=== PATIENT | male | born 1960 | race Caucasian/White ===

== ENCOUNTER 2024-06-02 10:26 | Emergency (ER) | payer MEDICAID, SELFPAY ==
--- NOTE | ~2024-06-02 | XR_ITS ---
EXAMINATION: XR CHEST CLINICAL INFORMATION: chest pain COMPARISON: None available. TECHNIQUE: Frontal view of the chest was obtained. FINDINGS: No significant abnormality is noted involving the heart, lungs, mediastinum, bony thorax or soft tissues. XR/XR chest 1V IMPRESSION: Unremarkable examination. Electronically signed by: Bubba Gonzalez MD 06/02/2024 11:29 AM [facility]
--- NOTE | ~2024-06-02 | CT_ITS ---
EXAMINATION: CT CERVICAL SPINE WITHOUT CONTRAST CLINICAL INFORMATION: Left-sided radicular pain COMPARISON: None available. TECHNIQUE: Contiguous axial images through the cervical spine using 0.6 and 2.0 mm collimation with soft tissue and lung algorithm. Sagittal and coronal reformatted images acquired. This CT examination was performed using dose optimization techniques as appropriate, variously including the following: *Automated exposure control *Adjustment of mA and/or kV according to patient size (this includes techniques or standardized protocols for targeted exams where dose is matched to indication/reason for exam; i.e. extremities or head) *Use of iterative reconstruction technique DLP: 380 mGy-cm FINDINGS: Craniocervical junction is intact. C1 is intact. C2 is intact. C3 is intact. C4 is intact. C5 is intact. C6 is intact. C7 is intact. There is normal alignment. Marginal osteophyte formation C3-4 and C5-6. No hematoma, prevertebral compartment. Tympanic cavities and mastoid cells are aerated. High riding right internal jugular bulb extending into the posterior inferior right hypotympanum. CT/CT cervical spine wo IV con IMPRESSION: Spondylosis, C3-4 and C5-6 without acute fracture or listhesis. Fleischner guidelines were followed. Electronically signed by: Kulwant Giron MD 06/02/2024 12:19 PM [facility]
[2024-06-02 10:34] VITALS: BP 137/80; PULSE 88; O2SAT 98
--- NOTE | 2024-06-02 10:35 | ECG_ITS ---
Test Reason : CHEST PAIN Blood Pressure : / mmHG Vent. Rate : 077 BPM Atrial Rate : 077 BPM P-R Int : 124 ms QRS Dur : 082 ms QT Int : 350 ms P-R-T Axes : 062 -14 036 degrees QTc Int : 396 ms Normal sinus rhythm Normal ECG No previous ECGs available Referred By: Nila Medrano Electronically Signed By:ADIS CUADRA MD
--- NOTE | 2024-06-02 10:38 | ED.CHESTPAIN ---
HPI - Chest Pain General Chief Complaint: Neck Pain/Injury Stated Complaint: CP Time Seen by Provider: 06/02/24 10:35 Source: patient, EMS and japanese interpreter Mode of arrival: EMS Limitations: no limitations History of Present Illness ED Provider: MORALES BALL narrative: 63 yo male with no PMH here with c/o L sided neck pain and on off x 1 week radiates to L hand states felt tingling in that hand as well. Denies fevers, trauma. Notes he is R hand dominant. given aspirin and nitro by EMS no relief with nitro. He notes it hurts to turn his neck. He is also worried because when he gets the pain he feels depressed. No rash reported MD complaint: other (neck pain) Onset (ago): week(s) (1) Timing of current episode: episodic Prior episodes: No Onset: other (turning neck) Pain location: other (left posterior lateral neck) Pain radiation: left arm Severity: moderate Quality: sharp Relieving factors: rest Exacerbating factors: movement Associated symptoms: other (tingling in L hand at times) Related Data Previous Rx's ?Medication ?Instructions ?Recorded cyclobenzaprine 10 mg tablet 10 mg PO TID PRN muscle spasm #20 06/02/24 tabs lidocaine 5 % topical patch 1 patch topical DAILY #30 ea 06/02/24 prednisone 20 mg tablet 40 mg (2 x 20 mg) PO DAILY 5 days 06/02/24 #10 tabs Allergies Allergy/AdvReac Type Severity Reaction Status Date / Time No Known Allergies Allergy Verified 06/02/24 10:48 [No Known Allergies*] Review of Systems Review of Systems: Constitutional : No Fever, No Chills, No Fatigue ENT/Mouth : No sore throat, No Rhinorrhea Eyes: No Eye Pain, No Swelling, No Redness Cardiovascular : No Chest Pain, No SOB, No Dyspnea on Exertion Respiratory : No Cough, No Sputum Gastrointestinal : No Nausea, No Vomiting, No Diarrhea, No abdominal Pain Genitourinary : No Dysuria, No Urinary Frequency, No Hematuria, Musculoskeletal : No joint pain, No Myalgias, No Joint Swelling, pos neck pain Skin : No Skin Lesions, No rash Neuro : No Weakness, No Numbness, No Dizziness, no Headache, pos tingling Psych : No Anxiety/Panic, No Depression All other systems reviewed and are negative [facility] Past Medical History Attestation statement: The following information was validated with the patient. Source: old records reviewed Medical History No pertinent past medical history Social History Social History (Updated 06/02/24 @ 11:00 by Nila Medrano DO) Patient Tobacco Use Status: Never used Tobacco Smoked in Last 30 Days: No Use of substances other than those prescribed or required for medical reasons: No Advance Directives: No Advance Directives Information Provided: Yes Physical Exam Vital Signs: Vital Signs: Last Vital Signs Temp 98.4 F 06/02/24 12:13 Pulse 70 06/02/24 12:13 Resp 16 06/02/24 12:13 BP 144/86 H 06/02/24 12:13 Pulse Ox 99 06/02/24 12:13 O2 Del Method Room Air 06/02/24 12:13 BMI result Body Mass Index 29.3 Appearance: Alert. Oriented X3. No acute distress. Eyes: Pupils equal, round and reactive to light. ENT: Pharynx normal. Neck: + ttp along L lateral neck, + spurling maneuver CVS: Normal heart rate and rhythm. Pulses normal. Respiratory: No respiratory distress. Breath sounds normal. Abdomen: Soft and nontender. Skin: Skin warm and dry. Normal skin color. Normal skin turgor. Extremities: No lower extremity edema. L hand SILT intact throughout 2+ radial pulse, 5/5 strength Neuro: Oriented X 3. No motor deficit. No sensory deficit. Medications Administered Discontinued Medications Generic Name Dose Route Start Last Admin Trade Name Freq PRN Reason Stop Dose Admin Cyclobenzaprine HCl 10 mg 06/02/24 10:50 06/02/24 10:58 Cyclobenzaprine Hcl 10 Mg Tablet PO 06/02/24 10:51 10 mg ONCE ONE Administration Ketorolac Tromethamine 15 mg 06/02/24 10:50 06/02/24 10:57 Ketorolac Tromethamine 15 Mg/Ml Vial IVPUSH 06/02/24 10:51 15 mg ONCE ONE Administration Lidocaine 1 patch 06/02/24 10:50 06/02/24 10:58 Lidocaine 4 % Patch Adh..Patch TRANSDERMA 06/02/24 10:51 1 patch ONCE ONE Administration Protocol Medical Decision Making Medical Decision Making MDM Narrative: 63 yo male no sig PMH here with c/o L neck pain and radiating down L hand occasionally has tingling in hand but on exam SILT intact, 2+ radial pulse and 5/5 strength throughout no risk factors for dissection pain is on and off at this time suspect cervical radiculopathy - PO medications, labs, CT scan, no signs of neurovasc compromise of LUE Differential Diagnosis Differential Diagnoses: The differential diagnosis associated with the presentation includes radiculopathy, cervical strain Admission/Observation Consideration of admission/observation: Escalation of care including admission/observation considered feels better stable for DC Lab Data [facility] Lab Attestation statement: I reviewed the patient's lab results. 06/02/24 10:56 06/02/24 10:56 Labs: Lab Results 06/02/24 Range/Units 10:56 WBC 7.9 (4.8-10.8) X10*3/uL RBC 5.01 (4.60-5.80) X10*6/uL Hgb 13.8 L (14.0-18.0) g/dl Hct 41.6 L (42.0-52.0) % MCV 83.0 (80.0-98.0) fL MCH 27.5 (27.0-33.0) pg MCHC 33.2 (31.0-36.0) g/dl RDW 13.1 (11.0-16.0) % Plt Count 210 (160-400) X10*3/uL MPV 10.6 (9.4-12.4) fL Immature Gran % (Auto) 0.5 H (0.0-0.4) % Neut % (Auto) 72.6 (45-73) % Lymph % (Auto) 16.7 L (20-40) % [place] % (Auto) 6.9 (2-11) % Eos % (Auto) 2.5 (0-4) % Baso % (Auto) 0.8 (0-2) % Lymph # (Auto) 1.3 (1.2-4.9) X10*3/uL [place] # (Auto) 0.6 (0.1-1.2) X10*3/uL Eos # (Auto) 0.2 (0.0-0.4) X10*3/uL Baso # (Auto) 0.1 (0.0-0.2) X10*3/uL Abs Immat Gran (auto) 0.04 H (0.00-0.03) X10*3/uL Absolute Neuts (auto) 5.8 (2.0-8.3) x10*3/uL Absolute Nucleated RBC 0.000 (0.0-0.012) X10*3/uL Nucleated RBC % (auto) 0.0 (0.0-0.2) /100WBC PT 11.7 (10.9-12.4) SEC INR 1.0 (0.9-1.1) Sodium 139 (135-145) mmol/L Potassium 3.7 (3.3-5.1) mmol/L Chloride 106 (96-108) mmol/L Carbon Dioxide 24 (22-29) mmol/L Anion Gap 13 (12-20) BUN 18 H (9-16) mg/dL Creatinine 0.87 (0.5-1.4) mg/dL Estim Creat Clear Calc 72.1 Estimated GFR > 60 Random Glucose 109 (60-115) mg/dL Calcium 8.8 (8.4-10.2) mg/dL Magnesium 2.0 (1.6-2.6) mg/dL Total Bilirubin 0.5 (0.0-1.0) mg/dL Direct Bilirubin 0.2 (0.0-0.5) mg/dL AST 23 (5-37) U/L ALT 17 (0-40) U/L Alkaline Phosphatase 128 H (39-117) U/L Troponin I High Sens < 2.7 (<3.5-35.0) ng/L Total Protein 7.0 (6.5-8.0) g/dL Albumin 4.1 (3.5-5.0) g/dL Lipase 21 (8-78) U/L Independent Interpretation I performed an independent interpretation of an: EKG, Plain X-Ray (normal ) and CT Scan (no mass) Interpretation: Rate: 77 Rhythm: NSR [place]: left Normal P waves. Normal SUMA[place]. Normal QRS complex. ST T wave : normal no LEXUS qTC: 396 prior studies: none The study has been interpreted contemporaneously by me. . Radiology Impression Discussion of test interpretation with radiology: I have reviewed the radiologist's reading. Discharge Plan Discharge Clinical Impression: Cervical radiculopathy Patient Disposition: Home, Self-Care Instructions: Cervical Radiculopathy (ED) Additional Instructions: return for any worsening symptoms or concerns please follow up with doctor - [place] [phone] please return for loss of control of hand or worsening numbness CT/CT cervical spine wo IV con IMPRESSION: Spondylosis, C3-4 and C5-6 without acute fracture or listhesis Prescriptions: New cyclobenzaprine 10 mg tablet 10 mg PO TID PRN (Reason: muscle spasm) Qty: 20 0RF prednisone 20 mg tablet 40 mg PO DAILY 5 Days Qty: 10 0RF lidocaine 5 % adhesive patch,medicated 1 patch topical DAILY Qty: 30 0RF Rx Instructions: leave on most painful area for up to 12 hrs Stand Alone Forms: Work/School Release Print Language: Serbian
[2024-06-02 10:39] VITALS: BP 145/75; PULSE 81; RESP 16; TEMP 37.1; O2SAT 100; BMI 29.3
[2024-06-02 10:49] VITALS: PULSE 80; RESP 16
[2024-06-02] MEDS: Ketorolac Tromethamine 15 MG/ML VIAL IVPUSH (10:57)
[2024-06-02] MEDS: Cyclobenzaprine HCl 10 MG TABLET PO (10:58)
[2024-06-02] MEDS: Lidocaine 4 % Patch ADH..PATCH 1 PATCH TRANSDERMA (10:58)
[2024-06-02 11:02] LABS: MANUAL DIFF FLAG NO
[2024-06-02 11:05] LABS: Basophils Absolute Auto 0.1 X10*3/uL (0.0-0.2); Basophils Percent Auto 0.8 % (0-2); Eosinophils Absolute Auto 0.2 X10*3/uL (0.0-0.4); Eosinophils Percent Auto 2.5 % (0-4); Hematocrit 41.6 % (42.0-52.0); Hemoglobin 13.8 g/dl (14.0-18.0); Imm Gran Abs Auto 0.04 X10*3/uL (0.00-0.03); Imm Gran Pct Auto 0.5 % (0.0-0.4); Lymphocytes Absolute Auto 1.3 X10*3/uL (1.2-4.9); Lymphocytes Percent Auto 16.7 % (20-40); Mean Corpuscular HGB Conc 33.2 g/dl (31.0-36.0); Mean Corpuscular Hemoglobin 27.5 pg (27.0-33.0); Mean Platelet Volume 10.6 fL (9.4-12.4); Monocytes Absolute Auto 0.6 X10*3/uL (0.1-1.2); Monocytes Percent Auto 6.9 % (2-11); Neutrophils Absolute Auto 5.8 x10*3/uL (2.0-8.3); Neutrophils Percent Auto 72.6 % (45-73); Platelet Count 210 X10*3/uL (160-400); Red Blood Count 5.01 X10*6/uL (4.60-5.80); Red Cell Distribution Width 13.1 % (11.0-16.0); White Blood Count 7.9 X10*3/uL (4.8-10.8)
[2024-06-02 11:11] LABS: Prothrombin Time 11.7 SEC (10.9-12.4)
[2024-06-02 11:28] LABS: Alanine Aminotransferase 17 U/L (0-40); Albumin Level 4.1 g/dL (3.5-5.0); Anion Gap 13 (12-20); Aspartate Amino Transferase 23 U/L (5-37); Bilirubin Direct 0.2 mg/dL (0.0-0.5); Bilirubin Total 0.5 mg/dL (0.0-1.0); Blood Urea Nitrogen 18 mg/dL (9-16); Calcium 8.8 mg/dL (8.4-10.2); Carbon Dioxide 24 mmol/L (22-29); Chloride 106 mmol/L (96-108); Creatinine Clr Calc Pharmacy 72.1; Estimated Glomerular Filt Rate > 60; Glucose Random 109 mg/dL (60-115); Lipase 21 U/L (8-78); Potassium 3.7 mmol/L (3.3-5.1); Sodium 139 mmol/L (135-145); Troponin-I High Sensitivity < 2.7 ng/L (<3.5-35.0)
[2024-06-02 11:37] LABS: Alkaline Phosphatase 128 U/L (39-117)
[2024-06-02 12:13] VITALS: BP 144/86; PULSE 70; RESP 16; TEMP 36.9; O2SAT 99
[2024-06-02 12:48] VITALS: BP 144/86; PULSE 70; RESP 16; TEMP 36.9; O2SAT 99
== END 2024-06-02 12:48 | disposition home or self-care (01) ==
PROVIDERS: Emergency Provider Emergency Medicine
DX: M54.12 Radiculopathy, cervical region (principal); M54.2 Cervicalgia
CPT/HCPCS: 36415; 71045; 72125; 80048; 80076; 83690; 83735; 84484; 85025; 85610; 93005; 96374; 99284; 99285; J1885

== ENCOUNTER → 2024-06-02 10:35 | Outpatient (BNV) | payer MEDICAID, SELFPAY | PROVIDERS: Emergency Provider Emergency Medicine; Visit Provider Internal Medicine Cardiovascular Disease | DX: R07.9 Chest pain, unspecified (principal) | CPT/HCPCS: 93010 ==

== ENCOUNTER → 2024-06-02 10:50 | Outpatient (BNV) | payer MEDICAID, SELFPAY | PROVIDERS: Emergency Provider Emergency Medicine; Visit Provider Radiology Diagnostic Radiology | DX: M54.12 Radiculopathy, cervical region (principal) | CPT/HCPCS: 72125 ==

== ENCOUNTER 2024-08-14 21:02 | Emergency (ER) | payer MEDICAID, SELFPAY ==
--- NOTE | 2024-08-14 | ECG_ITS ---
Test Reason : CP Blood Pressure : */* mmHG Vent. Rate : 94 BPM Atrial Rate : 94 BPM P-R Int : 118 ms QRS Dur : 80 ms QT Int : 320 ms P-R-T Axes : 57 -22 54 degrees QTcB Int : 400 ms Normal sinus rhythm Normal ECG When compared with ECG of 02-Jun-2024 10:39, No significant change was found Referred By: Generic ED Physician Electronically Signed By: RICHARD CHATMAN
--- NOTE | ~2024-08-14 | XR_ITS ---
CLINICAL HISTORY: cp sob cough 1 view chest x-ray. Comparison: None Findings: No consolidation, pneumothorax, or effusion. Heart size normal. Impression: 1. No acute cardiopulmonary process. No focal pulmonary consolidation. This document has been electronically signed by: Patrice Giang MD on 08/14/2024 22:17:48
[2024-08-14 21:07] VITALS: BP 175/82; PULSE 103; RESP 18; TEMP 37; O2SAT 98; BMI 25.3
[2024-08-14 21:39] LABS: MANUAL DIFF FLAG NO
[2024-08-14 21:42] LABS: Basophils Absolute Auto 0.1 X10*3/uL (0.0-0.2); Basophils Percent Auto 0.7 % (0-2); Eosinophils Absolute Auto 0.4 X10*3/uL (0.0-0.4); Eosinophils Percent Auto 3.4 % (0-4); Hemoglobin 12.8 g/dl (14.0-18.0); Imm Gran Abs Auto 0.05 X10*3/uL (0.00-0.03); Imm Gran Pct Auto 0.4 % (0.0-0.4); Lymphocytes Absolute Auto 1.6 X10*3/uL (1.2-4.9); Lymphocytes Percent Auto 13.5 % (20-40); Mean Corpuscular HGB Conc 33.7 g/dl (31.0-36.0); Mean Corpuscular Hemoglobin 28.1 pg (27.0-33.0); Mean Corpuscular Volume 83.3 fL (80.0-98.0); Mean Platelet Volume 10.6 fL (9.4-12.4); Monocytes Absolute Auto 1.1 X10*3/uL (0.1-1.2); Monocytes Percent Auto 9.2 % (2-11); Neutrophils Absolute Auto 8.4 x10*3/uL (2.0-8.3); Neutrophils Percent Auto 72.8 % (45-73); Platelet Count 199 X10*3/uL (160-400); Red Blood Count 4.56 X10*6/uL (4.60-5.80); Red Cell Distribution Width 12.8 % (11.0-16.0); White Blood Count 11.6 X10*3/uL (4.8-10.8)
[2024-08-14 21:48] LABS: IDNOW Serial# 58CA691E; Strep A Nucleic Acid Negative (Negative)
[2024-08-14 21:56] LABS: Alanine Aminotransferase 18 U/L (0-40); Albumin Level 3.8 g/dL (3.5-5.0); Alkaline Phosphatase 103 U/L (39-117); Anion Gap 12 (12-20); Aspartate Amino Transferase 25 U/L (5-37); Bilirubin Total 0.3 mg/dL (0.0-1.0); Blood Urea Nitrogen 19 mg/dL (9-16); Calcium 8.3 mg/dL (8.4-10.2); Carbon Dioxide 22 mmol/L (22-29); Chloride 111 mmol/L (96-108); Creatinine Clr Calc Pharmacy 65.2; Estimated Glomerular Filt Rate > 60; Glucose Random 123 mg/dL (60-115); Potassium 3.5 mmol/L (3.3-5.1); Sodium 141 mmol/L (135-145); Total Protein 6.8 g/dL (6.5-8.0)
[2024-08-14 22:03] LABS: Troponin-I High Sensitivity 12.2 ng/L (<3.5-35.0)
[2024-08-14 22:13] VITALS: BP 142/76; PULSE 103; RESP 20; TEMP 37.2; O2SAT 98
[2024-08-14 22:14] VITALS: PULSE 103
[2024-08-14 22:19] LABS: Influenza A PCR NEGATIVE (Negative); Influenza B PCR NEGATIVE (Negative); Resp Syncy Virus RNA Qual PCR NEGATIVE (Negative); SARS COV2 PCR INHOUSE NEGATIVE (Negative)
--- NOTE | 2024-08-14 22:47 | ECG_ITS ---
Test Reason : REPEAT Blood Pressure : */* mmHG Vent. Rate : 85 BPM Atrial Rate : 85 BPM P-R Int : 124 ms QRS Dur : 82 ms QT Int : 328 ms P-R-T Axes : 66 -17 52 degrees QTcB Int : 390 ms Normal sinus rhythm Normal ECG When compared with ECG of 14-Aug-2024 21:10, No significant change was found Referred By: Yuri Iyer Electronically Signed By: RICHARD CHATMAN
--- NOTE | 2024-08-14 23:40 | ED_ITS ---
HPI - Chest Pain General Chief Complaint: Chest Pain Stated Complaint: chest pain,sob Time Seen by Provider: 08/14/24 22:36 History of Present Illness ED Provider: Yuri Iyer MD HPI narrative: 63-year-old male nonsmoker no drugs denies medical history reports 3-4 days of intermittent shortness of breath with heavy coughing and associated posttussive chest discomfort. No phlegm or hemoptysis produced denies lower extremity edema. Nonsmoker Related Data Previous Rx's ?Medication ?Instructions ?Recorded cyclobenzaprine 10 mg tablet 10 mg PO TID PRN muscle spasm #20 06/02/24 tabs lidocaine 5 % topical patch 1 patch topical DAILY #30 ea 06/02/24 prednisone 20 mg tablet 40 mg (2 x 20 mg) PO DAILY 5 days 06/02/24 #10 tabs Allergies Allergy/AdvReac Type Severity Reaction Status Date / Time No Known Allergies Allergy Verified 08/14/24 21:14 [No Known Allergies*] COUNTS INCLUDE 234 BEDS AT THE [facility] Past Medical History Medical History No pertinent past medical history Social History Social History (Updated 06/02/24 @ 11:00 by Nila Medrano DO) Patient Tobacco Use Status: Never used Tobacco Smoked in Last 30 Days: No Use of substances other than those prescribed or required for medical reasons: No Advance Directives: No Advance Directives Information Provided: Yes Do you have a plan to hurt others: No Plan Physical Exam 2 Vital Signs: Vital Signs: Last Vital Signs Temp 99 F 08/15/24 01:02 Pulse 115 H 08/15/24 01:02 Resp 25 H 08/15/24 01:02 BP 115/71 08/15/24 01:02 Pulse Ox 99 08/15/24 01:02 O2 Del Method Room Air 08/15/24 01:02 BMI result Body Mass Index 25.3 Const: Other: EXAM: Gen: Alert, awake, well appearing, well hydrated. Head: Atraumatic Eyes: Anicteric, Normal conjunctiva. ENT: Moist mucosa, no pallor. Neck: Supple. Respiratory: Breathing comfortably, No distress.Clear to auscultation bilaterally, symmetric chest expansion, No wheeze, rales, ronchi. Cardiovascular: Regular rate and rhythm. No murmurs or rub. Well perfused periphery, warm extremities. No edema. Abdominal: Soft, no objective distension. No palpable masses or obvious organomegaly. No focal tenderness, no guarding, no rebound tenderness or other peritoneal findings. : No flank tenderness. Neuro: Alert. Gross movement of all extremities intact. Vital signs: See flowsheet Medications Administered Discontinued Medications Generic Name Dose Route Start Last Admin Trade Name Freq PRN Reason Stop Dose Admin Albuterol/Ipratropium 3 ml 08/14/24 23:39 08/14/24 23:53 Albuterol/Iprat 2.5/0.5mg 3 Ml Ampul.Neb INHALE 08/14/24 23:40 3 ml ONCE ONE Administration Guaifenesin/Dextromethorphan 1 tab 08/14/24 23:39 08/15/24 00:12 Guaifenesin Dm 600/30 1 Tab Tab.Er.12h PO 08/14/24 23:40 1 tab ONCE ONE Administration Ibuprofen 400 mg 08/14/24 23:39 08/15/24 00:12 Ibuprofen 400 Mg Tablet PO 08/14/24 23:40 400 mg ONCE ONE Administration Medical Decision Making Medical Decision Making [facility] Narrative: 63-year-old male with atypical post-tussive chest discomfort in the setting of 3-4 days of cough. Suspect viral URI and/or bronchitis. There is no wheezing or respiratory distress. X-rays clear of infiltrates. There is no pneumothorax or suggestion of congestive heart failure. ECG initial was obscured by artifact, repeat shows sinus rhythm rate 85 QTC 390 no acute ischemic changes. Initial troponin 12 repeat colon. Given the duration and character pain unlikely to represent ACS or PE no clinical suggestion of CHF. Empiric supportive therapy for likely viral bronchitis or URI. Differential Diagnosis Differential Diagnoses: The differential diagnosis associated with the presentation includes uri, bronchitis, pericarditis, acs less likely, pe less likely Lab Data [facility] Lab Attestation statement: I reviewed the patient's lab results. 08/14/24 21:34 08/14/24 21:34 Labs: Lab Results 08/14/24 08/14/24 Range/Units 21:34 23:03 WBC 11.6 H (4.8-10.8) X10*3/uL RBC 4.56 L (4.60-5.80) X10*6/uL Hgb 12.8 L (14.0-18.0) g/dl Hct 38.0 L (42.0-52.0) % MCV 83.3 (80.0-98.0) fL MCH 28.1 (27.0-33.0) pg MCHC 33.7 (31.0-36.0) g/dl RDW 12.8 (11.0-16.0) % Plt Count 199 (160-400) X10*3/uL MPV 10.6 (9.4-12.4) fL Immature Gran % (Auto) 0.4 (0.0-0.4) % Neut % (Auto) 72.8 (45-73) % Lymph % (Auto) 13.5 L (20-40) % [place] % (Auto) 9.2 (2-11) % Eos % (Auto) 3.4 (0-4) % Baso % (Auto) 0.7 (0-2) % Lymph # (Auto) 1.6 (1.2-4.9) X10*3/uL [place] # (Auto) 1.1 (0.1-1.2) X10*3/uL Eos # (Auto) 0.4 (0.0-0.4) X10*3/uL Baso # (Auto) 0.1 (0.0-0.2) X10*3/uL Abs Immat Gran (auto) 0.05 H (0.00-0.03) X10*3/uL Absolute Neuts (auto) 8.4 H (2.0-8.3) x10*3/uL Absolute Nucleated RBC 0.000 (0.0-0.012) X10*3/uL Nucleated RBC % (auto) 0.0 (0.0-0.2) /100WBC Sodium 141 (135-145) mmol/L Potassium 3.5 (3.3-5.1) mmol/L Chloride 111 H (96-108) mmol/L Carbon Dioxide 22 (22-29) mmol/L Anion Gap 12 (12-20) BUN 19 H (9-16) mg/dL Creatinine 0.88 (0.5-1.4) mg/dL Estim Creat Clear Calc 65.2 Estimated GFR > 60 Random Glucose 123 H (60-115) mg/dL Calcium 8.3 L (8.4-10.2) mg/dL Total Bilirubin 0.3 (0.0-1.0) mg/dL AST 25 (5-37) U/L ALT 18 (0-40) U/L Alkaline Phosphatase 103 (39-117) U/L Troponin I High Sens 12.2 D 13.8 (<3.5-35.0) ng/L Total Protein 6.8 (6.5-8.0) g/dL Albumin 3.8 (3.5-5.0) g/dL Influenza Type A (PCR) NEGATIVE (Negative) Influenza Type B (PCR) NEGATIVE (Negative) RSV RNA Qual (PCR) NEGATIVE (Negative) SARS-CoV-2 RNA (RT-PCR) NEGATIVE (Negative) S. pyogenes GrpA JAYA Negative (Negative) Independent Interpretation I performed an independent interpretation of an: EKG Interpretation: See above ECG interpretation sinus rhythm no ischemic changes Discharge Plan Discharge Clinical Impression: Atypical chest pain, Cough due to bronchospasm Patient Disposition: Home, Self-Care Instructions: Chest Pain (DC), Acute Cough (ED) Additional Instructions: DISCHARGE DIAGNOSES: Cough with associated chest pain probably bronchitis from a viral infection HISTORY OF PRESENTATION: cough and pain after coughing for few days EMERGENCY DEPARTMENT COURSE,TESTS, TREATMENTS: While in the ED today x-ray showed no signs of pneumonia. Your lungs were clear and your oxygen levels and other vital signs were normal DISCHARGE MEDICATIONS: we will send you home with a prescription for albuterol pump just to be used as needed in the setting of cough or bronchitis such as this situation. You we are not diagnosed in you with any chronic pulmonary condition such as asthma or emphysema you can try [id number] cough medicines or simply warm water or tea with honey FOLLOW-UP: Call your primary or general physician soon as possible to discuss your symptoms, your ED visit and to discuss follow up plans call your primary doctor for follow-up rest for few days. We provided a work note INSTRUCTIONS & RETURN PRECAUTIONS: If any symptoms change first call your primary physician, if it is after-hours your primary doctors office should have a provider mission assessment specialist you can speak with. If the symptoms are severe or very concerning to you then call 911 or return to the ED. Yuri Iyer MD Emergency Physician [facility] Prescriptions: No Action cyclobenzaprine 10 mg tablet 10 mg PO TID PRN (Reason: muscle spasm) Qty: 20 0RF prednisone 20 mg tablet 40 mg PO DAILY 5 Days Qty: 10 0RF lidocaine 5 % adhesive patch,medicated 1 patch topical DAILY Qty: 30 0RF Rx Instructions: leave on most painful area for up to 12 hrs Stand Alone Forms: Work/School Release Interventions: ED Discharge Assessment Last Done: 08/15/24 01:02 Discharge Date/Time: 08/15/24 01:08 Print Language: Kinyarwanda
[2024-08-14 23:42] LABS: Troponin-I High Sensitivity 13.8 ng/L (<3.5-35.0)
[2024-08-14] MEDS: Albuterol/Iprat 2.5/0.5MG 3 ML AMPUL.NEB INHALE (23:53)
[2024-08-14 23:55] VITALS: PULSE 93; RESP 16; O2SAT 99
[2024-08-15 00:11] VITALS: BP 115/71; PULSE 115; RESP 25; TEMP 37.2; O2SAT 99
[2024-08-15] MEDS: Ibuprofen 400 MG TABLET PO (00:12)
[2024-08-15] MEDS: guaiFENesin DM 600/30 1 TAB TAB.ER.12H PO (00:12)
[2024-08-15 01:02] VITALS: BP 115/71; PULSE 115; RESP 25; TEMP 37.2; O2SAT 99
== END 2024-08-15 01:08 | disposition home or self-care (01) ==
PROVIDERS: Emergency Provider Emergency Medicine
DX: R07.89 Other chest pain (principal); J98.01 Acute bronchospasm; R05.9 Cough, unspecified; Z03.818 Encounter for observation for suspected exposure to other biological agents ruled out
CPT/HCPCS: 0241U; 36415; 71045; 80053; 84484; 85025; 87651; 93005; 94640; 99284; 99285

== ENCOUNTER → 2024-08-14 21:10 | Outpatient (BNV) | payer MEDICAID, SELFPAY | PROVIDERS: Emergency Provider Emergency Medicine; Visit Provider Internal Medicine | DX: Z13.6 Encounter for screening for cardiovascular disorders (principal) | CPT/HCPCS: 93010 ==

== ENCOUNTER → 2024-08-14 21:30 | Outpatient (BNV) | payer MEDICAID, SELFPAY | PROVIDERS: Emergency Provider Emergency Medicine; Visit Provider Radiology Diagnostic Radiology | DX: R07.9 Chest pain, unspecified (principal); R06.02 Shortness of breath | CPT/HCPCS: 71045 ==